=== PATIENT | male | born 2005 | race Caucasian/White ===

== ENCOUNTER 2024-01-17 15:19 | Emergency (ER) | payer OTHER ==
[2024-01-17 15:29] VITALS: O2SAT 99
--- NOTE | 2024-01-17 15:47 | ED Physician Documentation ---
PD HPI ABD PAIN - Stated complaint Stated Complaint: ABD PX - Chief complaint Chief Complaint: Abd Pain - History obtained from History obtained from: Patient - Additional information Additional information: Patient is a 18-year-old male with no significant past medical history Presenting for evaluation of right lower quadrant For 3 days. Patient denies any associated nausea or vomiting. He did have some mac & cheese around 11:00 but states his appetite has been decreased today. No diarrhea. No fever. Denies history of prior abdominal surgeries. Review of Systems Constitutional: denies: Fever Cardiac: denies: Chest pain / pressure Respiratory: denies: Dyspnea GI: reports: Abdominal Pain. denies: Vomiting : denies: Dysuria PD PAST MEDICAL HISTORY - Past Medical History Past Medical History: No Psych: Depression, Anxiety - Past Surgical History Past Surgical History: No - Allergies Allergies/Adverse Reactions: Allergies Allergy/AdvReac Type Severity Reaction Status Date / Time No Known Drug Allergies Allergy Verified 01/17/24 15:25 - Social History Does the pt smoke?: No Smoking Status: Never smoker Does the pt drink ETOH?: No Does the pt have substance abuse?: No - Immunizations Immunizations are current?: Yes - POLST Patient has POLST: No PD ED PE NORMAL - General General: Alert and oriented X 3, No acute distress, Well developed/nourished - HEENT HEENT: Atraumatic, Moist mucous membranes, Pharynx benign - Neck Neck: Supple, no meningeal sign - Cardiac Cardiac: RRR, Strong equal pulses - Respiratory Respiratory: No respiratory distress, Clear bilaterally - Abdomen Abdomen: Normal bowel sounds, Soft, Non distended, Other (Right lower quadrant tenderness) - Derm Derm: Warm and dry - Neuro Neuro: Normal speech Results - Vitals Vitals: Vital Signs - 24 hr 01/17/24 01/17/24 15:25 17:53 Temperature 36.8 C 36.8 C Heart Rate 77 85 Respiratory 16 18 Rate Blood Pressure 150/100 H 153/112 H O2 Saturation 99 99 Oxygen O2 Source Room air - Labs Labs: Laboratory Tests 01/17/24 01/17/24 01/17/24 15:53 15:53 16:03 WBC 9.3 RBC 7.58 H Hgb 18.6 H Hct 59.3 H MCV 78.2 L MCH 24.5 L MCHC 31.4 L RDW 16.8 H Plt Count 261 MPV 9.7 Neut # (Auto) 6.0 Lymph # (Auto) 2.3 [place] # (Auto) 0.8 Eos # (Auto) 0.2 Baso # (Auto) 0.1 Absolute Nucleated RBC 0.00 Nucleated RBC % 0.0 Sodium 140 Potassium 4.4 Chloride 106 Carbon Dioxide 27 Anion Gap 7.0 BUN 14 Creatinine 1.2 Estimated GFR (MDRD) 78 L Glucose 95 Calcium 10.2 Total Bilirubin 0.5 AST 23 ALT 63 H Alkaline Phosphatase 73 Total Protein 7.5 Albumin 4.8 Globulin 2.7 Albumin/Globulin Ratio 1.8 Lipase 26 Urine Color YELLOW Urine Clarity CLEAR Urine pH 6.5 Ur Specific [place] 1.025 Urine Protein NEGATIVE Urine Glucose (UA) NEGATIVE Urine Ketones NEGATIVE Urine Occult Blood NEGATIVE Urine Nitrite NEGATIVE Urine Bilirubin NEGATIVE Urine Urobilinogen 0.2 (NORMAL) Ur Leukocyte Esterase NEGATIVE Ur Microscopic Review NOT INDICATED Urine Culture Comments NOT INDICATED PD Medical Decision Making - ED course Complexity details: reviewed results, re-evaluated patient, d/w patient, d/w family ED course: Pt is a 18 yo M presenting with R sided abdominal pain x 3 days. No fever, vomiting. Sent from [facility]. Labs reviewed including CBC, chemistries, UA with no significant findings. Pt is quite ticklish but does report RLQ tenderness during exam. Plan for CT scan. While awaiting imaging, pt's mother calls. Gives further information that pt is autistic and is usually of the type to not hide pain. She requests we wait for her arrival before obtaining imaging. Mother is an HEALTHCARE FACILITY ADMINISTRATOR and works in [facility]. On repeat exam, pt denies pain and able to jump up and down at bedside without issue. Mother and pt would like to hold on imaging at this time and mother feels comfortable monitoring his symptoms this weekend which I feel is reasonable. Counseled on strict return precautions. 175 - Repeat abdominal exam is benign. Patient is able to jump and down and denies any abdominal pain with this. States he is starting to feel hungry. Departure - Departure Disposition: 01 Home, Self Care Clinical Impression: Right lower quadrant abdominal pain, Elevated blood pressure reading Condition: Stable Instructions: ED Abdominal Pain Unkn Cause Male Comments: At this time the exact cause for your abdominal symptoms is unclear but it is reassuring that your pain has improved and your labs are also not revealing any significant abnormalities. We have opted to hold off on a CT scan at this time as your pain has improved. If you develop any worsening symptoms such as increased pain, fever, vomiting then please return to the emergency department. Your blood pressure readings have been slightly elevated here. I would recommend close follow-up with your primary care doctor for recheck in the next 1 to 2 weeks. Forms: PCP List Discharge Date/Time: 01/17/24 18:15
[2024-01-17 16:01] LABS: BASOPHILS # (AUTO) 0.1 10^3/uL (0.0-0.1); BASOPHILS % (AUTO) 0.6 %; EOSINOPHILS # (AUTO) 0.2 10^3/uL (0.0-0.7); EOSINOPHILS % (AUTO) 1.7 %; HCT - HEMATOCRIT 59.3 % (42.0-52.0); HGB - HEMOGLOBIN 18.6 g/dL (14.0-18.0); LYMPHOCYTES # (AUTO) 2.3 10^3/uL (1.5-3.5); LYMPHOCYTES % (AUTO) 25.2 %; MEAN CORPUSCULAR HEMOGLOBIN 24.5 pg (27.0-31.0); MEAN CORPUSCULAR HGB CONC 31.4 g/dL (32.0-36.0); MEAN CORPUSCULAR VOLUME 78.2 fL (80.0-94.0); MEAN PLATELET VOLUME 9.7 fL (7.4-11.4); MONOCYTES # (AUTO) 0.8 10^3/uL (0.0-1.0); MONOCYTES % (AUTO) 8.2 %; NEUTROPHILS % (AUTO) 64.1 %; PLT - PLATELET COUNT 261 10^3/uL (130-450); RED BLOOD COUNT 7.58 10^6/uL (4.70-6.10); RED CELL DISTRIBUTION WIDTH 16.8 % (12.0-15.0); WHITE BLOOD COUNT 9.3 x10^3/uL (4.8-10.8)
[2024-01-17 16:10] LABS: BILIRUBIN,URINE NEGATIVE (NEGATIVE); GLUCOSE, URINE (UA) NEGATIVE (NEGATIVE); KETONES,URINE (UA) NEGATIVE (NEGATIVE); LEUKOCYTE ESTERASE, URINE NEGATIVE (NEGATIVE); NITRITE,URINE NEGATIVE (NEGATIVE); OCCULT BLOOD,URINE NEGATIVE (NEGATIVE); PH,URINE 6.5 PH (5.0-7.5); PROTEIN,URINE NEGATIVE (NEGATIVE); UROBILINOGEN,URINE 0.2 (NORMAL) E.U./dL (NORMAL)
[2024-01-17 16:13] LABS: CLARITY,URINE CLEAR (CLEAR)
[2024-01-17 16:16] LABS: ALBUMIN 4.8 g/dL (3.2-5.5); ALBUMIN/GLOBULIN RATIO 1.8 (1.0-2.2); BILIRUBIN,TOTAL 0.5 mg/dL (0.2-1.0); CALCIUM 10.2 mg/dL (8.5-10.3); CREATININE 1.2 mg/dL (0.6-1.3); POTASSIUM 4.4 mmol/L (3.5-4.5); TOTAL PROTEIN 7.5 g/dL (6.4-8.9)
[2024-01-17] MEDS ORDERED: iohexoL-300 100 ML VIAL ONE (16:37)
[2024-01-17 18:05] VITALS: BP 153/112
== END 2024-01-17 18:15 | disposition home or self-care (01) ==
LOC: ED 15:19
DX: R10.31 Right lower quadrant pain (principal); R03.0 Elevated blood-pressure reading, without diagnosis of hypertension; F84.0 Autistic disorder
CPT/HCPCS: 36415; 80053; 81001; 81003; 83690; 85025; 87086; 99283